=== PATIENT | male | born 1975 | race Hispanic/Latino ===

== ENCOUNTER 2019-10-07 07:00 | Outpatient (RCR) | payer OTHER | END 2019-10-10 | LOC: PT 07:00 | PROVIDERS: ATTEND Specialist | DX: S33.5XXA Sprain of ligaments of lumbar spine, initial encounter (principal); M54.5 Low back pain; M62.81 Muscle weakness (generalized); M53.86 Other specified dorsopathies, lumbar region ==

== ENCOUNTER 2019-10-11 07:27 | Outpatient (RCR) | payer OTHER | END 2019-11-09 | LOC: PT 07:27 | PROVIDERS: ATTEND Specialist | DX: S33.5XXA Sprain of ligaments of lumbar spine, initial encounter (principal); M54.5 Low back pain; M62.81 Muscle weakness (generalized); M53.86 Other specified dorsopathies, lumbar region ==